=== PATIENT | female | born 1980 ===

== ENCOUNTER 2021-11-03 17:35 | Emergency (ER) | payer OTHER ==
[~2021-11-03] VITALS: Ht 162.6 cm; Wt 52.6 kg
== END 2021-11-03 20:47 | disposition home or self-care (01) ==
LOC: ER 17:35
DX: A49.3 Mycoplasma infection, unspecified site (principal); R50.9 Fever, unspecified; Z20.822 Contact with and (suspected) exposure to COVID-19